=== PATIENT | male | born 1965 | race Caucasian/White ===

== ENCOUNTER 2016-12-10 07:34 | Emergency (ER) | payer OTHER ==
--- NOTE | 2016-12-10 09:50 | ED ORDER SUMMARY ---
..... Patient: JAMAR PETTIT OrderSheet [facility] VisitID: [id number] [address] [place] [address] 51y, M Registration Date/Time: 12/10/2016 ORDER SHEET Weight: 107.9 kg (measured) Allergies: No Known Drug Allergy GENERAL ORDERS: Cervical Spine 2 or 3V Urgent (08:11 12/10/2016 Panfilo Tobias) [facility] 8[facility] (9:20 Javon) MEDICATION ORDERS: IV FLUIDS: ORDER SHEET NOTES: [Electronically signed by Barry Sorto Dr. (10:19 12/10/2016)] [Electronically signed by Celestino Beasley R.N. (12/10/2016)] [Electronically locked/signed by Celestino Beasley R.N. (12/10/2016)]
--- NOTE | 2016-12-10 09:50 | ED ORDER SUMMARY ---
..... Patient: JAMAR PETTIT OrderSheet [facility] VisitID: [id number] [address] [place] [address] 51y, M Registration Date/Time: 12/10/2016 ORDER SHEET Weight: 107.9 kg (measured) Allergies: No Known Drug Allergy GENERAL ORDERS: Cervical Spine 2 or 3V Urgent (08:11 12/10/2016 Panfilo Tobias) (Ack 8:12 [facility] (9:20 Javon) MEDICATION ORDERS: IV FLUIDS: ORDER SHEET NOTES: [Electronically signed by Barry Sorto Dr. (10:19 12/10/2016)] [Electronically signed by Celestino Beasley R.N. (12/10/2016)] [Electronically locked/signed by Celestino Beasley R.N. (12/10/2016)]
--- NOTE | 2016-12-10 09:50 | ED NURSING NOTES ---
Clinical Report - Nurses [facility] [address] [place] [address] 12/10/2016 7:38 Patient: JAMAR PETTIT TRIAGE Triage time 07:55. Acuity: LEVEL 4. Chief Complaint: (Left shoulder pain & HTN, posterior neck pain, left arm tingling. Last week he had an episode of dizziness. He has been monitoring his b/p at home, b/p is elevated. No sx now. He was seen at the walk-in clinic for same c/o on Wednesday.). SEPSIS SCREEN: Sepsis Screen. Negative (no infection suspected/documented). GERALD COMA SCORE: Gerald Coma Scale: 15- eyes open spontaneously (4); best verbal response- oriented x 4 (5); best motor response- obeys commands (6). --08:06 Celestino Beasley R.N. 07:57 12/10/16. BP: 149/88 (regular adult cuff) taken on the left arm, while lying. HR: 72. RR: 16. O2 saturation: 98% on room air. Temp: 98.4 F (oral). Pain level now: 11/02. --08:06 Celestino Beasley R.N. Weight: 107.9 kg measured. Height/Length: 71 inches Per Patient. BMI: 33.2. --08:03 Celestino Beasley R.N. Medications ASA Oral 81mg, QD. --07:59 Celestino Beasley R.N. Allergies No Known Drug Allergy. --08:00 Celestino Beasley R.N. History Arrived by private vehicle. Historian: patient. SOCIAL HX: Smoker- current status unknown (cigarette). Occasional alcohol use. No drug use. ABUSE ASSESSMENT: No report of abuse. --08:06 Celestino Beasley R.N. PROBLEMS: Cancer. --08:01 Celestino Beasley R.N. ADDITIONAL SURGERIES: Skin cancer. --08:01 Celestino Beasley R.N. Assessment GENERAL / NEURO / PSYCH: Alert. Oriented X 4. Patient appears calm and cooperative. RESPIRATORY: Respirations not labored. Chest nontender. CVS: Normal sinus rhythm noted. Capillary refill less than 2 seconds. GI / : Abdomen soft and nontender. SKIN: Mucous membranes are pink. Skin is warm and dry. --08:06 Celestino Beasley R.N. Interventions ID band on patient. To treatment room. --08:06 Celestino Beasley R.N. DISPOSITION / DISCHARGE late entry -10:35. Departure time: 1030. Condition at departure: unchanged and stable. No learning barriers present. Discharge instructions provided and reviewed with the patient. Reviewed medication(s). Patient verbalized understanding. Written instructions provided in French. The patient was discharged by the physician. He was discharged home. He left the Emergency Department ambulatory and via private vehicle. Patient driving. --11:27 Celestino Beasley R.N. 09:30 12/10/16. BP: 136/81. HR: 63. RR: 16. O2 saturation: 95% on room air. Temp: 98.4 F. Pain level now: 11/02. --11:27 Celestino Beasley R.N. Locked/Released at 12/10/2016 11:27 by Celestino Beasley R.N.
--- NOTE | 2016-12-10 09:50 | ED NURSING NOTES ---
Clinical Report - Nurses [facility] [address] [place] [address] 12/10/2016 7:38 Patient: JAMAR PETTIT TRIAGE Triage time 07:55. Acuity: LEVEL 4. Chief Complaint: (Left shoulder pain & HTN, posterior neck pain, left arm tingling. Last week he had an episode of dizziness. He has been monitoring his b/p at home, b/p is elevated. No sx now. He was seen at the walk-in clinic for same c/o on Wednesday.). SEPSIS SCREEN: Sepsis Screen. Negative (no infection suspected/documented). GERALD COMA SCORE: Gerald Coma Scale: 15- eyes open spontaneously (4); best verbal response- oriented x 4 (5); best motor response- obeys commands (6). --08:06 Celestino Beasley R.N. 07:57 12/10/16. BP: 149/88 (regular adult cuff) taken on the left arm, while lying. HR: 72. RR: 16. O2 saturation: 98% on room air. Temp: 98.4 F (oral). Pain level now: 11/02. --08:06 Celestino Beasley R.N. Weight: 107.9 kg measured. Height/Length: 71 inches Per Patient. BMI: 33.2. --08:03 Celestino Beasley R.N. Medications ASA Oral 81mg, QD. --07:59 Celestino Beasley R.N. Allergies No Known Drug Allergy. --08:00 Celestino Beasley R.N. History Arrived by private vehicle. Historian: patient. SOCIAL HX: Smoker- current status unknown (cigarette). Occasional alcohol use. No drug use. ABUSE ASSESSMENT: No report of abuse. --08:06 Celestino Beasley R.N. PROBLEMS: Cancer. --08:01 Celestino Beasley R.N. ADDITIONAL SURGERIES: Skin cancer. --08:01 Celestino Beasley R.N. Assessment GENERAL / NEURO / PSYCH: Alert. Oriented X 4. Patient appears calm and cooperative. RESPIRATORY: Respirations not labored. Chest nontender. CVS: Normal sinus rhythm noted. Capillary refill less than 2 seconds. GI / : Abdomen soft and nontender. SKIN: Mucous membranes are pink. Skin is warm and dry. --08:06 Celestino Beasley R.N. Interventions ID band on patient. To treatment room. --08:06 Celestino Beasley R.N. DISPOSITION / DISCHARGE late entry -10:35. Departure time: 1030. Condition at departure: unchanged and stable. No learning barriers present. Discharge instructions provided and reviewed with the patient. Reviewed medication(s). Patient verbalized understanding. Written instructions provided in Kiswahili. The patient was discharged by the physician. He was discharged home. He left the Emergency Department ambulatory and via private vehicle. Patient driving. --11:27 Celestino Beasley R.N. 09:30 12/10/16. BP: 136/81. HR: 63. RR: 16. O2 saturation: 95% on room air. Temp: 98.4 F. Pain level now: 11/02. --11:27 Celestino Beasley R.N. Locked/Released at 12/10/2016 11:27 by Celestino Beasley R.N.
--- NOTE | 2016-12-10 09:50 | ED CLINICAL REPORT ---
Clinical Report - Physicians/Mid Levels [facility] [address] [place] [address] 12/10/2016 7:38 Patient: JAMAR PETTIT Time Seen: 08:01; initial patient contact. Arrived- By private vehicle. Historian- patient. HISTORY OF PRESENT ILLNESS Chief Complaint: NECK PAIN. Modifying factors- worsened by neck flexion and lifting. Relieved by remaining still. It is described as being moderate in degree and in the area of the left trapezius, left side of the cervical spine and cervical spine and radiating to the upper back. The quality is noted to be aching. Onset- about 1 week ago and it is still present (persistent). It was gradual in onset. No bladder dysfunction or bowel dysfunction. Mild sensory loss involving the left hand. Patient notes the possibility of an injury. Mechanism of injury- he was lifting. Occurred at work. REVIEW OF SYSTEMS No headache or difficulty with urination. All systems otherwise negative, except as recorded above. PAST HISTORY Cancer. SURGERIES: Skin cancer. Medications: ASA Oral 81mg, QD. Allergies: No Known Drug Allergy. SOCIAL HISTORY Former smoker. ADDITIONAL NOTES The nursing notes have been reviewed. PHYSICAL EXAM Vital Signs: 12/10/2016 07:57 BP: 149/88. HR: 72. RR: 16. O2 saturation: 98%. Temp: 98.4 F. Pain level now: 4/10. Have been reviewed. Hypertensive. Heart rate normal. Respiratory rate normal. Temperature normal. Oxygen saturation normal. Appearance: Alert. No acute distress. Neck: Mild pain in the entire posterior neck upon turning the head to the right, turning the head to the left, flexing the neck and extending the neck. Moderate muscle spasm of the left posterior neck. Mild acute decrease in ROM secondary to pain. No vertebral tenderness. Moderate soft tissue tenderness in the left mid and lower neck area. No meningeal signs. Neuro: Oriented X 3. Mood/affect normal. No motor deficit. No sensory deficit. Reflex exam: right triceps 2+, left triceps 2+, right brachioradialis 2+ and left brachioradialis 2+. LABS, X-RAYS, AND EKG C-Spine X-rays: Moderate straightening of the cervical spine. No fracture or subluxation. Views: 3 view C-spine series. Technique: good. The X-rays were independently viewed by me and interpreted contemporaneously by me. Prior films were not available for comparison. Interpretation time: 09:49. PROGRESS AND PROCEDURES Disposition: Discharged home in good condition. Condition: good. CLINICAL IMPRESSION Acute cervical strain. INSTRUCTIONS No lifting greater than 10 lbs until released. Prescription Medications: Baclofen 20 mg: take 1 orally every 8 hours. Dispense thirty (30). No refills. Follow-up: Screening today revealed the patient's blood pressure to be in the pre-hypertensive range. The patient should follow up with a primary care provider for blood pressure management. Follow-up with: [facility], [facility], , [address] [place] [address], [address] [place] [address] Follow up in about two days. Call for an appointment. (Electronically signed by Barry Sorto Dr. 12/10/2016 10:19)
--- NOTE | 2016-12-10 09:50 | ED CLINICAL REPORT ---
Clinical Report - Physicians/Mid Levels [facility] [address] [place] [address] 12/10/2016 7:38 Patient: JAMAR PETTIT Time Seen: 08:01; initial patient contact. Arrived- By private vehicle. Historian- patient. HISTORY OF PRESENT ILLNESS Chief Complaint: NECK PAIN. Modifying factors- worsened by neck flexion and lifting. Relieved by remaining still. It is described as being moderate in degree and in the area of the left trapezius, left side of the cervical spine and cervical spine and radiating to the upper back. The quality is noted to be aching. Onset- about 1 week ago and it is still present (persistent). It was gradual in onset. No bladder dysfunction or bowel dysfunction. Mild sensory loss involving the left hand. Patient notes the possibility of an injury. Mechanism of injury- he was lifting. Occurred at work. REVIEW OF SYSTEMS No headache or difficulty with urination. All systems otherwise negative, except as recorded above. PAST HISTORY Cancer. SURGERIES: Skin cancer. Medications: ASA Oral 81mg, QD. Allergies: No Known Drug Allergy. SOCIAL HISTORY Former smoker. ADDITIONAL NOTES The nursing notes have been reviewed. PHYSICAL EXAM Vital Signs: 12/10/2016 07:57 BP: 149/88. HR: 72. RR: 16. O2 saturation: 98%. Temp: 98.4 F. Pain level now: 4/10. Have been reviewed. Hypertensive. Heart rate normal. Respiratory rate normal. Temperature normal. Oxygen saturation normal. Appearance: Alert. No acute distress. Neck: Mild pain in the entire posterior neck upon turning the head to the right, turning the head to the left, flexing the neck and extending the neck. Moderate muscle spasm of the left posterior neck. Mild acute decrease in ROM secondary to pain. No vertebral tenderness. Moderate soft tissue tenderness in the left mid and lower neck area. No meningeal signs. Neuro: Oriented X 3. Mood/affect normal. No motor deficit. No sensory deficit. Reflex exam: right triceps 2+, left triceps 2+, right brachioradialis 2+ and left brachioradialis 2+. LABS, X-RAYS, AND EKG C-Spine X-rays: Moderate straightening of the cervical spine. No fracture or subluxation. Views: 3 view C-spine series. Technique: good. The X-rays were independently viewed by me and interpreted contemporaneously by me. Prior films were not available for comparison. Interpretation time: 09:49. PROGRESS AND PROCEDURES Disposition: Discharged home in good condition. Condition: good. CLINICAL IMPRESSION Acute cervical strain. INSTRUCTIONS No lifting greater than 10 lbs until released. Prescription Medications: Baclofen 20 mg: take 1 orally every 8 hours. Dispense thirty (30). No refills. Follow-up: Screening today revealed the patient's blood pressure to be in the pre-hypertensive range. The patient should follow up with a primary care provider for blood pressure management. Follow-up with: [facility], [facility], , [address] [place] [address], [address] [place] [address] Follow up in about two days. Call for an appointment. (Electronically signed by Barry Sorto Dr. 12/10/2016 10:19)
--- NOTE | 2016-12-10 10:35 | DIAGNOSTIC IMAGING REPORT ---
PROCEDURE: XR CERVICAL SPINE 2 OR 3 VIEW INDICATION: NECK PAIN TECHNIQUE: Three views. COMPARISON: None. FINDINGS: Spondylosis C5-6 and C6-7 with foraminal impingement. No evidence of an acute process or fracture. IMPRESSION: 1. 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
--- NOTE | 2016-12-10 11:27 | ED MED RECONCILIATION SUMMARY ---
Patient: JAMAR PETTIT Medication Reconciliation Report [facility] VisitID: [id number] [address] [place] [address] 51y, M Registration Date/Time: 12/10/2016 Weight: 107.9 kg Height/Length: 71 in. BMI: 33.2 ALLERGIES: No Known Drug Allergy The patient's Home Medications are listed below: THE FOLLOWING MEDICATIONS NEED TO BE RECONCILED: ASA Oral 81mg, QD The source(s) of the original Home Medication information: Not obtained. The following Medications were given to the patient in the Emergency Department: None. The following Medications were prescribed to the patient: Baclofen 20 mg: take 1 orally every 8 hours. Dispense thirty (30). No refills. -- Barry Sorto Dr.
--- NOTE | 2016-12-10 11:27 | ED DISCHARGE INSTRUCTIONS ---
Patient: JAMAR PETTIT General Instructions Located [facility] VisitID: [id number] [address] [place] [address] 51y, M Registration Date/Time: 12/10/2016 Acute cervical strain. INSTRUCTIONS No lifting greater than 10 lbs until released. Prescription Medications: Baclofen 20 mg: take 1 orally every 8 hours. Dispense thirty (30). No refills. Follow-up: Screening today revealed the patient's blood pressure to be in the pre-hypertensive range. The patient should follow up with a primary care provider for blood pressure management. Follow-up with: [facility], , [address] [place] [address], [address], [place] [address] Follow up in about two days. Call for an appointment. ADDITIONAL INFORMATION Neck Sprain Or Strain A sudden force that causes turning or bending of the neck (such as in a car accident) can stretch or tear muscles (strain) and ligaments (sprain) and cause neck pain. Sometimes neck pain occurs after a simple awkward movement. In either case, muscle spasm is commonly present and contributes to the pain. Unless you had a forceful physical injury (for example, a car accident or fall), X-rays are usually not ordered for the initial evaluation of neck pain. If pain continues and dose not respond to medical treatment, X-rays and other tests may be performed at a later time. Home care The following guidelines will help you care for your injury at home: You may feel more soreness and spasm the first few days after the injury. Reduce your activity level until symptoms begin to improve. When lying down, use a comfortable pillow that supports the head and keeps the spine in a neutral position. The position of the head should not be tilted forward or backward. Use ice packs (ice in a plastic bag, wrapped in a towel) to treat acute pain. Apply for 20 minutes every 24 hours during the first two days. Then, begin local heat (hot shower, hot bath or heating pad) andmassageto reduce muscle spasm. Some patients feel best alternating hot and cold treatments, or just staying with one method only. Do what feels the best to you and gives the most relief. You may use acetaminophen or ibuprofen to control pain, unless another pain medicine was prescribed.If you have chronic liver or kidney disease or ever had a stomach ulcer or GI bleeding, talk with your doctor before using these medicines. Follow-up care Follow up with your physician or this facility if your symptoms do not show signs of improvement. Physical therapy may be needed. If you had X-rays today, they didnt show any broken bones, breaks, or fractures. Sometimes fractures dont show up on the first X-ray. Bruises and sprains can sometimes hurt as much as a fracture. These injuries can take time to heal completely. If your symptoms dont improve or they get worse, talk with your doctor. You may need a repeat X-ray. When to seek medical care Get prompt medical attention if any of the following occur: Pain becomes worse or spreads into your arms Weakness or numbness in one or both arms You have been given the following additional information: Neck Sprain/Strain No lifting greater than 10 lbs until released. (Electronically signed by Barry Sorot Dr. 12/10/2016 10:19)
--- NOTE | 2016-12-10 11:27 | ED DISCHARGE INSTRUCTIONS ---
Patient: JAMAR PETTIT General Instructions [facility] VisitID: [id number] [address] [place] [address] 51y, M Registration Date/Time: 12/10/2016 Acute cervical strain. INSTRUCTIONS No lifting greater than 10 lbs until released. Prescription Medications: Baclofen 20 mg: take 1 orally every 8 hours. Dispense thirty (30). No refills. Follow-up: Screening today revealed the patient's blood pressure to be in the pre-hypertensive range. The patient should follow up with a primary care provider for blood pressure management. Follow-up with: [facility], , [address] [place] [address], [address], [place] [address] Follow up in about two days. Call for an appointment. ADDITIONAL INFORMATION Neck Sprain Or Strain A sudden force that causes turning or bending of the neck (such as in a car accident) can stretch or tear muscles (strain) and ligaments (sprain) and cause neck pain. Sometimes neck pain occurs after a simple awkward movement. In either case, muscle spasm is commonly present and contributes to the pain. Unless you had a forceful physical injury (for example, a car accident or fall), X-rays are usually not ordered for the initial evaluation of neck pain. If pain continues and dose not respond to medical treatment, X-rays and other tests may be performed at a later time. Home care The following guidelines will help you care for your injury at home: You may feel more soreness and spasm the first few days after the injury. Reduce your activity level until symptoms begin to improve. When lying down, use a comfortable pillow that supports the head and keeps the spine in a neutral position. The position of the head should not be tilted forward or backward. Use ice packs (ice in a plastic bag, wrapped in a towel) to treat acute pain. Apply for 20 minutes every 24 hours during the first two days. Then, begin local heat (hot shower, hot bath or heating pad) andmassageto reduce muscle spasm. Some patients feel best alternating hot and cold treatments, or just staying with one method only. Do what feels the best to you and gives the most relief. You may use acetaminophen or ibuprofen to control pain, unless another pain medicine was prescribed.If you have chronic liver or kidney disease or ever had a stomach ulcer or GI bleeding, talk with your doctor before using these medicines. Follow-up care Follow up with your physician or this facility if your symptoms do not show signs of improvement. Physical therapy may be needed. If you had X-rays today, they didnt show any broken bones, breaks, or fractures. Sometimes fractures dont show up on the first X-ray. Bruises and sprains can sometimes hurt as much as a fracture. These injuries can take time to heal completely. If your symptoms dont improve or they get worse, talk with your doctor. You may need a repeat X-ray. When to seek medical care Get prompt medical attention if any of the following occur: Pain becomes worse or spreads into your arms Weakness or numbness in one or both arms You have been given the following additional information: Neck Sprain/Strain No lifting greater than 10 lbs until released. (Electronically signed by Barry Sorto Dr. 12/10/2016 10:19)
--- NOTE | 2016-12-10 11:27 | ED MAR SUMMARY ---
..... Medication Administration Record [facility] [address] [place], [place] [id number] Patient: JAMAR PETTIT Visit ID: [id number] 51y, M Weight: 107.9 kg Height/Length: 71 in BMI: 33.2 ALLERGIES: No Known Drug Allergy
--- NOTE | 2016-12-10 11:27 | ED MED RECONCILIATION SUMMARY ---
Patient: JAMAR PETTIT Medication Reconciliation Report [facility] VisitID: [id number] [address] [place] [address] 51y, M Registration Date/Time: 12/10/2016 Weight: 107.9 kg Height/Length: 71 in. BMI: 33.2 ALLERGIES: No Known Drug Allergy The patient's Home Medications are listed below: THE FOLLOWING MEDICATIONS NEED TO BE RECONCILED: ASA Oral 81mg, QD The source(s) of the original Home Medication information: Not obtained. The following Medications were given to the patient in the Emergency Department: None. The following Medications were prescribed to the patient: Baclofen 20 mg: take 1 orally every 8 hours. Dispense thirty (30). No refills. -- Barry Sorto Dr.
--- NOTE | 2016-12-10 11:27 | ED MAR SUMMARY ---
..... Medication Administration Record [facility] [address] [place], [place] [id number] Patient: JAMAR PETTIT Visit ID: [id number] 51y, M Weight: 107.9 kg Height/Length: 71 in BMI: 33.2 ALLERGIES: No Known Drug Allergy
== END 2016-12-10 10:30 | disposition home or self-care (01) ==
LOC: ED SRH 07:34
DX: S16.1XXA Strain of muscle, fascia and tendon at neck level, initial encounter (principal); X58.XXXA Exposure to other specified factors, initial encounter; Y93.9 Activity, unspecified; Y92.9 Unspecified place or not applicable; Y99.9 Unspecified external cause status